=== PATIENT | male | born 1985 ===

== ENCOUNTER 2016-07-21 16:23 | Emergency (ER) | payer OTHER ==
--- NOTE | 2016-07-22 11:54 | RAD ---
PROCEDURE: Radiographs of the right elbow. HISTORY: PAIN COMPARISON: No prior. FINDINGS: BONES: Normal. No fracture. JOINTS: Normal. No osteoarthritis. SOFT TISSUES: Normal. JOINT EFFUSION: None. OTHER FINDINGS: None. IMPRESSION: Unremarkable radiographs of the right elbow.
== END 2016-07-21 18:48 | disposition home or self-care (01) ==
LOC: C.ER 16:23
DX: S51.031A Puncture wound without foreign body of right elbow, initial encounter (principal); W22.8XXA Striking against or struck by other objects, initial encounter